=== PATIENT | female | born 1955 ===

== ENCOUNTER 2018-02-17 08:35 | Emergency (ER) | payer OTHER ==
[2018-02-17 08:35] VITALS: BMI 26.3
[2018-02-17] MEDS ORDERED: Sodium Chloride 0.9% 1,000 ML IV STA (09:11)
--- NOTE | 2018-02-17 09:17 | ED PDOC ---
HPI: Psych/Substance Abuse Time Seen by Provider: 02/17/18 08:47 Chief Complaint (Nursing): Psychiatric Evaluation Chief Complaint (Provider): Anxious History Per: Patient Additional Complaint(s): Pt. states she is anxious. Son states she was screaming in the house and has had mild episodes of anxiety over the years. Now it is worse. Pt. states she is also having some nausea, weakness all over. Had several watery stools. No urinary complaints. No chest pain, dyspnea, headaches, dizziness, abd pain. No numbness, tingles. Past Medical History Reviewed: Nursing Documentation, Vital Signs Vital Signs: Last Vital Signs Temp 98.4 F 02/17/18 08:37 Pulse 93 H 02/17/18 08:37 Resp 20 02/17/18 08:37 BP 163/98 H 02/17/18 08:37 Pulse Ox 95 02/17/18 08:37 - Medical History PMH: Anxiety, Arthritis, Asthma (NEVER HOSPITALIZED), Hypercholesterolemia, Hypothyroidism, Pneumonia (MANY YEARS AGO NOT HOSPITALIZED) Denies: Chronic Kidney Disease - Surgical History Surgical History: Endoscopy - Family History Family History: States: Unknown Family Hx - Living Arrangements Living Arrangements: With Family - Home Medications Home Medications: Ambulatory Orders Medication Instructions Recorded Albuterol HFA [Ventolin HFA 90 2 puff INH BID PRN 03/28/16 mcg/actuation (8 g)] Fluticasone Propionate [Flonase 9.9 ml NS DAILY 03/28/16 Allergy Relief] Levothyroxine Sodium [Synthroid] 88 mcg PO DAILY 03/28/16 Omeprazole 20 mg PO DAILY PRN 03/28/16 Simvastatin [Zocor] 20 mg PO DAILY 03/28/16 Vit D3-Vit K/Berberine/Hops 5,000 units PO DAILY 03/28/16 [Ostera Tablet] Cholecalciferol (Vitamin D3) 2,000 iu PO DAILY 11/07/16 [Vitamin D3] Magnesium Oxide [Magnesium] 400 mg PO DAILY 11/07/16 ALPRAZolam [Xanax] 0.25 mg PO DAILY PRN 02/17/18 Albuterol Sulfate [Ventolin Hfa] 1 puff .ROUTE PRN PRN 02/17/18 Meloxicam [Mobic] 15 mg PO DAILY 02/17/18 - Allergies Allergies/Adverse Reactions: Allergies Allergy/AdvReac Type Severity Reaction Status Date / Time No Known Allergies Allergy Verified 02/25/16 17:01 Review of Systems ROS Statement: Except As Marked, All Systems Reviewed And Found Negative Constitutional: Positive for: Weakness Gastrointestinal: Positive for: Nausea Neurological: Positive for: Weakness Psych: Positive for: Anxiety Physical Exam - Reviewed Nursing Documentation Reviewed: Yes Vital Signs Reviewed: Yes - Physical Exam Appears: Positive for: Well, Non-toxic, No Acute Distress Head Exam: Positive for: ATRAUMATIC, NORMAL INSPECTION, NORMOCEPHALIC Skin: Positive for: Normal Color, Warm, DRY Eye Exam: Positive for: EOMI, Normal appearance, PERRL ENT: Positive for: Normal ENT Inspection Neck: Positive for: Normal, Painless ROM Cardiovascular/Chest: Positive for: Regular Rate, Rhythm Respiratory: Positive for: CNT, Normal Breath Sounds Gastrointestinal/Abdominal: Positive for: Normal Exam, Soft. Negative for: Tenderness Back: Positive for: Normal Inspection. Negative for: L CVA Tenderness, R CVA Tenderness Extremity: Positive for: Normal ROM. Negative for: Tenderness, Pedal Edema Neurologic/Psych: Positive for: Alert, prepared foods associate II-XII, Oriented. Negative for: Mot or/Sensory Deficits, Aphasia, Facial Droop - Laboratory Results Result Diagrams: 02/17/18 09:41 02/17/18 09:41 Interpretation Of Abn Labs: no acute - ECG ECG: Positive for: Interpreted By Me, Viewed By Me ECG Rhythm: Positive for: Normal QRS, Normal ST Segment, Sinus Rhythm O2 Sat by Pulse Oximetry: 95 Pulse Ox Interpretation: Normal - Progress ED Course And Treament: 1124: Stable. AAOx3. Pain free. Tolerated PO. Crisis saw pt. Does not meet criteria for admit. Disposition - Clinical Impression Clinical Impression: Anxiety - Patient ED Disposition Is Patient to be Admitted: No Counseled Patient/Family Regarding: Studies Performed, Diagnosis, Need For Followup - Disposition Referrals: [facility] [Outside] - 02/19/18 Disposition: Routine/Home Disposition Time: 11:00 Condition: STABLE Additional Instructions: Return if not better in 3 days. Instructions: Anxiety, Adult (DC)
[2018-02-17 09:46] LABS: BASO % 0.6 % (0.0-2.0); EOS # 0.1 K/uL (0.0-0.7); EOS % 1.6 % (0.0-4.0); HEMOGLOBIN 12.3 g/dL (12.0-16.0); LYMPH # 1.3 K/uL (1.0-4.3); LYMPH % 18.1 % (20.0-40.0); MEAN CELL VOLUME 91.6 fl (81.0-99.0); MEAN CORPUSCULAR HEMOGLOBIN 31.2 pg (27.0-31.0); MEAN CORPUSCULAR HGB CONC 34.1 g/dL (33.0-37.0); MEAN PLATELET VOLUME 7.8 fl (7.2-11.7); MONO # 0.4 K/uL (0.0-0.8); MONO % 5.3 % (0.0-10.0); NEUT # 5.4 K/uL (1.8-7.0); NEUT % 74.4 % (50.0-75.0); RBC 3.95 Mil/uL (3.80-5.20); RED CELL DISTRIBUTION WIDTH 12.7 % (11.5-14.5); WHITE BLOOD COUNT 7.3 K/uL (4.8-10.8)
[2018-02-17 10:11] LABS: ALB/GLOB RATIO 1.6 (1.0-2.1); ALBUMIN 4.5 g/dL (3.5-5.0); ALT/SGPT 23 U/L (9-52); AST/SGOT 34 U/L (14-36); BLOOD UREA NITROGEN 15 mg/dl (7-17); CALCIUM 9.5 mg/dL (8.4-10.2); GFR NON-AFRICAN AMERICAN > 60
[2018-02-17 12:11] LABS: BARBITURATES, UR NEGATIVE (NEGATIVE); BENZODIAZEPINES, UR NEGATIVE (NEGATIVE); OPIATES, UR NEGATIVE (NEGATIVE); PHENCYCLIDINE, UR NEGATIVE (NEGATIVE)
[2018-02-17 12:47] VITALS: BP 123/71; PULSE 88; RESP 19; TEMP 98.8; O2SAT 100
--- NOTE | 2018-02-17 18:12 | CARD ---
APPROVED REPORT Date of service: 02/17/2018 EKG Measurement Heart [id number] <Conclusion> Normal sinus rhythm Nonspecific ST abnormality Abnormal ECG
== END 2018-02-17 12:47 | disposition home or self-care (01) ==
LOC: H.ER 08:35
DX: F41.9 Anxiety disorder, unspecified (principal); Z00.8 Encounter for other general examination; J45.909 Unspecified asthma, uncomplicated; E03.9 Hypothyroidism, unspecified; E78.00 Pure hypercholesterolemia, unspecified; Z79.899 Other long term (current) drug therapy
CPT/HCPCS: 80053; 84484; 85025; 93005; 96374; 99283; G0480; J2060; J2405; J7030

== ENCOUNTER 2018-07-07 09:47 | Emergency (ER) | payer OTHER ==
[2018-07-07 09:52] VITALS: RESP 18; O2SAT 97
[2018-07-07 09:53] VITALS: BMI 25.2
[2018-07-07] MEDS ORDERED: Tetracaine 0.5% Ophth 2 ML BOTTLE OD STA (10:35)
[2018-07-07] MEDS ORDERED: Fluorescein 1 mg Ophthalmic Strip ONE (10:36)
--- NOTE | 2018-07-07 11:02 | ED PDOC ---
HPI: Eye Injury/Pain Time Seen by Provider: 07/07/18 10:23 Chief Complaint (Provider): Eye Pain History Per: Patient History/Exam Limitations: no limitations Onset/Duration Of Symptoms: Days (x1) Current Symptoms Are (Timing): Still Present Additional Complaint(s): 63 year old female with a past medical history of colitis, hypothyroidism, and arthritis who is presenting to the ED for evaluation of right eye s/p possible foreign body accidentally falling in eye yesterday. Patient states that she was taking out the trash when something fell in her right eye and she used eye drops with no relief of symptoms. She reports that she can see clearly but admits to mild photophobia. Patient denies any dizziness, headaches, chest pain, nausea, vomiting, or diarrhea. PMD: none provided Past Medical History Reviewed: Historical Data, Nursing Documentation, Vital Signs Vital Signs: Last Vital Signs Temp 97.7 F 07/07/18 09:51 Pulse 78 07/07/18 09:51 Resp 18 07/07/18 09:51 BP 155/78 H 07/07/18 09:51 Pulse Ox 97 07/07/18 09:51 - Medical History PMH: Anxiety, Arthritis, Asthma (NEVER HOSPITALIZED), HTN, Hypercholesterolemia, Hypothyroidism, Pneumonia (MANY YEARS AGO NOT HOSPITALIZED) Denies: Diabetes, Hepatitis, HIV, Chronic Kidney Disease, Seizures, Sexually Transmitted Disease - Surgical History Surgical History: Endoscopy - Family History Family History: States: Unknown Family Hx - Social History Current smoker - smoking cessation education provided: No Alcohol: None Drugs: Denies - Home Medications Home Medications: Ambulatory Orders Medication Instructions Recorded Albuterol HFA [Ventolin HFA 90 2 puff INH BID PRN 03/28/16 mcg/actuation (8 g)] Fluticasone Propionate [Flonase 9.9 ml NS DAILY 03/28/16 Allergy Relief] Levothyroxine Sodium [Synthroid] 88 mcg PO DAILY 03/28/16 Omeprazole 20 mg PO DAILY PRN 03/28/16 Simvastatin [Zocor] 20 mg PO DAILY 03/28/16 Vit D3-Vit K/Berberine/Hops 5,000 units PO DAILY 03/28/16 [Ostera Tablet] Cholecalciferol (Vitamin D3) 2,000 iu PO DAILY 11/07/16 [Vitamin D3] Magnesium Oxide [Magnesium] 400 mg PO DAILY 11/07/16 ALPRAZolam [Xanax] 0.25 mg PO DAILY PRN 02/17/18 Albuterol Sulfate [Ventolin Hfa] 1 puff .ROUTE PRN PRN 02/17/18 Meloxicam [Mobic] 15 mg PO DAILY 02/17/18 Ciprofloxacin 0.3% [Ciloxan 0.3% 2 drop OD QID 5 Days bottle 07/07/18 Ophth SOLN] Ibuprofen [Motrin] 600 mg PO TID 7 Days tab 07/07/18 - Allergies Allergies/Adverse Reactions: Allergies Allergy/AdvReac Type Severity Reaction Status Date / Time No Known Allergies Allergy Verified 02/25/16 17:01 Review of Systems ROS Statement: Except As Marked, All Systems Reviewed And Found Negative Eyes: Positive for: Pain, Other (mild photophobia ). Negative for: Vision Change Cardiovascular: Negative for: Chest Pain Gastrointestinal: Negative for: Nausea, Vomiting, Diarrhea Neurological: Negative for: Dizziness Physical Exam - Reviewed Nursing Documentation Reviewed: Yes Vital Signs Reviewed: Yes - Physical Exam Appears: Positive for: Non-toxic, No Acute Distress Head Exam: Positive for: ATRAUMATIC, NORMAL INSPECTION, NORMOCEPHALIC Skin: Positive for: Normal Color, Warm, DRY Eye Exam: Positive for: Normal appearance, EOMI, PERRL, Other (sclera clear, no foreign body in upper or lower eyelid, no erythema to conjunctiva; fluorescein with no uptake R eye) ENT: Positive for: Normal ENT Inspection Neck: Positive for: Normal Cardiovascular/Chest: Positive for: Regular Rate, Rhythm Respiratory: Positive for: Normal Breath Sounds. Negative for: Respiratory Distress Gastrointestinal/Abdominal: Positive for: Normal Exam, Soft. Negative for: Tenderness Back: Positive for: Normal Inspection. Negative for: L CVA Tenderness, R CVA Tenderness Extremity: Positive for: Normal ROM. Negative for: Deformity, Swelling Neurological/Psych: Positive for: Awake, Alert, Normal Tone, Oriented. Negative for: Motor/Sensory Deficits - ECG O2 Sat by Pulse Oximetry: 97 (RA) Pulse Ox Interpretation: Normal - Progress ED Course And Treament: 115: Stable. AAOx3. Pain free. Tolerated po. Tetracaine relieved pain. Vision clear. Fu with eye doctor. She has an eye doctor she will see. Will tx for corneal abrasion clinically. Medical Decision Making Medical Decision Making: Time: 10:34 Plan: --Motrin 600 mg PO --Tetracaine 1 drop OD Scribe Attestation: Documented by Lelia Farrar, acting as a scribe for Richard Quinn MD. Provider Scribe Attestation: All medical record entries made by the Scribe were at my direction and personally dictated by me. I have reviewed the chart and agree that the record accurately reflects my personal performance of the history, physical exam, medical decision making, and the department course for this patient. I have also personally directed, reviewed, and agree with the discharge instructions and disposition. Disposition - Clinical Impression Clinical Impression: Corneal abrasion - Patient ED Disposition Is Patient to be Admitted: No Counseled Patient/Family Regarding: Studies Performed, Diagnosis, Need For Followup, Rx Given - Disposition Referrals: Teofilo Alan MD [Staff Provider] - 07/09/18 Disposition: Routine/Home Disposition Time: 11:17 Condition: STABLE Additional Instructions: Return if not better in 3 days. Prescriptions: Ciprofloxacin 0.3% [Ciloxan 0.3% Ophth SOLN] 2 drop OD QID 5 Days bottle Ibuprofen [Motrin] 600 mg PO TID 7 Days tab Instructions: Corneal Abrasion
[2018-07-07 11:59] VITALS: BP 138/76; PULSE 65; TEMP 98.2
== END 2018-07-07 11:55 | disposition home or self-care (01) ==
LOC: H.ER 09:47
DX: S05.01XA Injury of conjunctiva and corneal abrasion without foreign body, right eye, initial encounter (principal); M19.90 Unspecified osteoarthritis, unspecified site; J45.909 Unspecified asthma, uncomplicated